=== PATIENT | female | born 1960 | race Caucasian/White ===

== ENCOUNTER 2016-12-11 07:33 | Inpatient (IN) | payer MEDICAID ==
[~2016-12-11] VITALS: Ht 157.5 cm; Wt 96.5 kg
[2016-12-11] MEDS ORDERED: SODIUM CHLORIDE 0.9% 500 ML IVB ONE (08:08)
[2016-12-11] MEDS ORDERED: MORPHINE SULFATE 4 MG/ML SYRG IV ONE (08:15)
[2016-12-11] MEDS ORDERED: ONDANSETRON HCL 4 MG/2 ML VIAL IV ONE (08:15)
[2016-12-11 08:37] LABS: Basophils # (auto) 0 uL; Basophils % (auto) 0.4 % (0.0-2.0); Eosinophils # (auto) 0.5 uL; Eosinophils % (auto) 7.5 % (0.0-7.0); Hematocrit 44.3 % (36.0-46.0); Hemoglobin 14.5 g/dL (12.2-16.2); Lymphocytes # (auto) 1.8 uL; Mean Corpuscular Hemoglobin 27.7 pg (28.0-32.0); Mean Corpuscular Hgb Conc. 32.7 g/dL (32.0-36.0); Mean Corpuscular Volume 84.6 fL (80.0-100.0); Mean Platelet Volume 9.9 fL (7.4-10.4); Monocytes # (auto) 0.5 uL; Monocytes % (auto) 7.7 % (0.0-12.0); Neutrophils # (auto) 3.5 uL; Neutrophils % (auto) 55.4 % (37.0-80.0); Platelet Count (auto) 161 10^3/uL (140-450); Red Cell Distribution Width 13.2 % (11.6-16.0); White Blood Cell 6.2 10^3/uL (4.4-10.8)
[2016-12-11 08:57] LABS: Albumin 3.2 g/dL (3.4-5.0); Anion Gap 7 (5-15); Aspartate Aminotransferase 36 U/L (15-37); BUN/Creatinine Ratio 17.9; Blood Urea Nitrogen 12 mg/dL (7-18); Carbon Dioxide 24 mmol/L (21-32); Chloride 111 mmol/L (98-107); GFR African American 117 mL/min; GFR Non-African American 96 mL/min; Glucose 81 mg/dL (74-106); Sodium 142 mmol/L (136-145)
[2016-12-11 09:02] LABS: Alkaline Phosphatase 180 U/L (45-117); Bilirubin, Total 0.6 mg/dL (0.2-1.0); Total Protein 7.3 g/dL (6.4-8.2)
[2016-12-11] MEDS ORDERED: CLON1TAB3 PO (09:03)
[2016-12-11] MEDS ORDERED: LEVO50TA66 PO (09:03)
[2016-12-11] MEDS ORDERED: AMIT PO (09:04)
[2016-12-11] MEDS ORDERED: LISI-646 PO (09:04)
[2016-12-11 09:20] LABS: Urine RBC None Seen /hpf (0 - 4)
[2016-12-11 09:58] LABS: Urine Bilirubin Negative (Negative); Urine Blood Negative /uL (Negative); Urine Color Yellow (Yellow); Urine Glucose Normal (Normal); Urine Ketone Negative (Negative); Urine Nitrite Negative (Negative); Urine Squamous Epithelial Cell FEW /hpf (<5); Urine Urobilinogen Normal (Negative)
[2016-12-11] MEDS ORDERED: cefTRIAXone 1GM/50ML D5W 50 ML IV ONE (10:45)
[2016-12-11] MEDS ORDERED: ONDANSETRON HCL 4 MG/2 ML VIAL IV PRN (11:00)
[2016-12-11] MEDS ORDERED: ACETAMINOPHEN 325 MG TAB PO PRN (11:00)
[2016-12-11] MEDS ORDERED: NITROGLYCERIN 0.4 MG SL TAB SL PRN (11:00)
[2016-12-11] MEDS: LISINOPRIL 20 MG TAB PO SCH (11:03)
[2016-12-11] MEDS: MULTIPLE VITAMIN TAB PO SCH (11:03)
[2016-12-11] MEDS ORDERED: FAMOTIDINE 20 MG TAB PO SCH (11:15)
[2016-12-11] MEDS ORDERED: LEVOTHYROXINE SODIUM 50 MCG TAB PO ONE (11:15)
[2016-12-11 11:28] LABS: INR 1.02 (0.9-1.15)
[2016-12-11] MEDS ORDERED: METH10T PO (12:00)
[2016-12-11 13:00] VITALS: BP 103/64
[2016-12-11] MEDS ORDERED: metroNIDAZOLE 500MG/100ML 100 ML IV ONE (13:19)
[2016-12-11] MEDS: metroNIDAZOLE 500MG/100ML 100 ML IV SCH ×2 (14:12→20:31)
[2016-12-11] MEDS: SODIUM CHLOR 0.9% PF (SALINE LOCK) 10ML VIAL IV SCH ×2 (14:13→21:47)
[2016-12-11 17:20] VITALS: BP 97/67
[2016-12-11] MEDS: clonazePAM 0.5 MG TAB PO PRN (21:36)
[2016-12-11] MEDS: PANTOPRAZOLE 40 MG TAB PO SCH (21:49)
[2016-12-11] MEDS: AMITRIPTYLINE HCL 25 MG TAB PO SCH (21:49)
[2016-12-11 22:00] VITALS: BP 98/68
[2016-12-11] MEDS: TEMAZEPAM 15 MG CAP PO PRN (23:01)
[2016-12-11] MEDS: HYDROcodone-ACET 5/325MG TAB PO PRN (23:01)
[2016-12-12] MEDS: HYDROcodone-ACET 5/325MG TAB PO PRN ×4 (03:15→21:35)
[2016-12-12] MEDS: metroNIDAZOLE 500MG/100ML 100 ML IV SCH ×3 (04:30→20:33)
[2016-12-12] MEDS: SODIUM CHLOR 0.9% PF (SALINE LOCK) 10ML VIAL IV SCH ×3 (05:26→21:34)
[2016-12-12 05:30] VITALS: BP 109/73
[2016-12-12] MEDS: LEVOTHYROXINE SODIUM 50 MCG TAB PO SCH (06:39)
[2016-12-12 06:40] LABS: Basophils # (auto) 0 uL; Basophils % (auto) 0.5 % (0.0-2.0); Eosinophils # (auto) 0.4 uL; Eosinophils % (auto) 7.3 % (0.0-7.0); Hematocrit 38.8 % (36.0-46.0); Hemoglobin 12.7 g/dL (12.2-16.2); Lymphocytes # (auto) 1.8 uL; Lymphocytes % (auto) 34.9 % (10.0-50.0); Mean Corpuscular Hemoglobin 27.5 pg (28.0-32.0); Mean Corpuscular Hgb Conc. 32.7 g/dL (32.0-36.0); Mean Platelet Volume 9.9 fL (7.4-10.4); Monocytes # (auto) 0.4 uL; Monocytes % (auto) 8.6 % (0.0-12.0); Neutrophils # (auto) 2.5 uL; Neutrophils % (auto) 48.7 % (37.0-80.0); Platelet Count (auto) 143 10^3/uL (140-450); Red Cell Distribution Width 13.3 % (11.6-16.0); White Blood Cell 5.2 10^3/uL (4.4-10.8)
[2016-12-12 06:47] LABS: Albumin 2.7 g/dL (3.4-5.0); Calcium 8.1 mg/dL (8.5-10.1)
[2016-12-12 06:49] LABS: BUN/Creatinine Ratio 18.3
[2016-12-12 06:51] LABS: Bilirubin, Total 0.4 mg/dL (0.2-1.0); Total Protein 6.4 g/dL (6.4-8.2)
[2016-12-12 08:17] VITALS: BP 92/64
[2016-12-12] MEDS: cefTRIAXone 1GM/50ML D5W 50 ML IV SCH (09:11)
[2016-12-12] MEDS: METHADONE HCL 10 MG TAB PO SCH (09:12)
[2016-12-12] MEDS: PANTOPRAZOLE 40 MG TAB PO SCH ×2 (09:13→21:34)
[2016-12-12] MEDS: LISINOPRIL 20 MG TAB PO SCH (09:13)
[2016-12-12] MEDS: MULTIPLE VITAMIN TAB PO SCH (09:13)
[2016-12-12 12:42] VITALS: BP 123/76
[2016-12-12] MEDS: clonazePAM 0.5 MG TAB PO PRN (15:03)
[2016-12-12 17:21] VITALS: BP 105/67
[2016-12-12] MEDS: TEMAZEPAM 15 MG CAP PO PRN (21:34)
[2016-12-12] MEDS: AMITRIPTYLINE HCL 25 MG TAB PO SCH (21:34)
[2016-12-12 22:00] VITALS: BP 99/73
[2016-12-13] MEDS: clonazePAM 0.5 MG TAB PO PRN ×2 (02:51→15:01)
[2016-12-13] MEDS: metroNIDAZOLE 500MG/100ML 100 ML IV SCH ×3 (04:05→20:12)
[2016-12-13 05:00] VITALS: BP 105/68
[2016-12-13] MEDS: HYDROcodone-ACET 5/325MG TAB PO PRN ×4 (05:49→18:44)
[2016-12-13] MEDS: SODIUM CHLOR 0.9% PF (SALINE LOCK) 10ML VIAL IV SCH ×3 (05:59→21:45)
[2016-12-13 06:03] LABS: Basophils # (auto) 0 uL; Basophils % (auto) 0.4 % (0.0-2.0); Eosinophils # (auto) 0.4 uL; Eosinophils % (auto) 6.7 % (0.0-7.0); Hematocrit 40.1 % (36.0-46.0); Hemoglobin 12.9 g/dL (12.2-16.2); Lymphocytes # (auto) 1.8 uL; Lymphocytes % (auto) 30.1 % (10.0-50.0); Mean Corpuscular Hemoglobin 27.2 pg (28.0-32.0); Mean Corpuscular Hgb Conc. 32.2 g/dL (32.0-36.0); Mean Corpuscular Volume 84.6 fL (80.0-100.0); Mean Platelet Volume 9.8 fL (7.4-10.4); Monocytes # (auto) 0.5 uL; Monocytes % (auto) 9.1 % (0.0-12.0); Neutrophils # (auto) 3.1 uL; Neutrophils % (auto) 53.7 % (37.0-80.0); Platelet Count (auto) 143 10^3/uL (140-450); Red Cell Distribution Width 13.1 % (11.6-16.0); White Blood Cell 5.8 10^3/uL (4.4-10.8)
[2016-12-13 06:17] LABS: Potassium 4.2 mmol/L (3.5-5.1)
[2016-12-13 06:23] LABS: Albumin 2.7 g/dL (3.4-5.0); BUN/Creatinine Ratio 15.2; Calcium 7.9 mg/dL (8.5-10.1)
[2016-12-13 06:27] LABS: Bilirubin, Total 0.3 mg/dL (0.2-1.0); Total Protein 6.4 g/dL (6.4-8.2)
[2016-12-13] MEDS: LEVOTHYROXINE SODIUM 50 MCG TAB PO SCH (06:34)
[2016-12-13 08:00] VITALS: BP 124/89
[2016-12-13] MEDS: METHADONE HCL 10 MG TAB PO SCH (08:29)
[2016-12-13 09:00] VITALS: BP 124/89
[2016-12-13] MEDS: cefTRIAXone 1GM/50ML D5W 50 ML IV SCH (10:12)
[2016-12-13] MEDS: PANTOPRAZOLE 40 MG TAB PO SCH ×2 (10:13→21:45)
[2016-12-13] MEDS: MULTIPLE VITAMIN TAB PO SCH (10:13)
[2016-12-13] MEDS: LISINOPRIL 20 MG TAB PO SCH (10:14)
[2016-12-13] MEDS ORDERED: LACTULOSE 20Gm/30ML SOLN PO PRN (13:00)
[2016-12-13 17:00] VITALS: BP 101/65
[2016-12-13 19:30] VITALS: BP 124/89
[2016-12-13 21:44] VITALS: BP 99/61
[2016-12-13] MEDS: AMITRIPTYLINE HCL 25 MG TAB PO SCH (21:45)
[2016-12-13] MEDS: TEMAZEPAM 15 MG CAP PO PRN (21:46)
[2016-12-14] VITALS (7 sets, daily range): BP systolic 95–111; BP diastolic 63–81
[2016-12-14] MEDS: HYDROcodone-ACET 5/325MG TAB PO PRN ×2 (02:40→12:50)
[2016-12-14] MEDS: clonazePAM 0.5 MG TAB PO PRN ×2 (02:40→15:45)
[2016-12-14] MEDS: metroNIDAZOLE 500MG/100ML 100 ML IV SCH ×2 (04:00→12:50)
[2016-12-14] MEDS: SODIUM CHLOR 0.9% PF (SALINE LOCK) 10ML VIAL IV SCH ×2 (05:04→15:45)
[2016-12-14 06:11] LABS: Basophils # (auto) 0 uL; Basophils % (auto) 0.5 % (0.0-2.0); Eosinophils # (auto) 0.4 uL; Eosinophils % (auto) 6.9 % (0.0-7.0); Hematocrit 40.3 % (36.0-46.0); Hemoglobin 13.2 g/dL (12.2-16.2); Lymphocytes # (auto) 1.7 uL; Lymphocytes % (auto) 29.1 % (10.0-50.0); Mean Corpuscular Hemoglobin 27.5 pg (28.0-32.0); Mean Corpuscular Hgb Conc. 32.8 g/dL (32.0-36.0); Mean Corpuscular Volume 83.7 fL (80.0-100.0); Monocytes # (auto) 0.6 uL; Monocytes % (auto) 9.8 % (0.0-12.0); Neutrophils # (auto) 3.2 uL; Neutrophils % (auto) 53.7 % (37.0-80.0); Platelet Count (auto) 145 10^3/uL (140-450); White Blood Cell 5.9 10^3/uL (4.4-10.8)
[2016-12-14] MEDS: LEVOTHYROXINE SODIUM 50 MCG TAB PO SCH (06:12)
[2016-12-14 06:23] LABS: Potassium 4.1 mmol/L (3.5-5.1)
[2016-12-14 06:42] LABS: BUN/Creatinine Ratio 18.9; Calcium 8.3 mg/dL (8.5-10.1)
[2016-12-14] MEDS ORDERED: SODIUM CHLORIDE LOCK 10 ML ONE (08:03)
[2016-12-14] MEDS ORDERED: NALOXONE HCL 0.4 MG/ML VIAL ONE (08:03)
[2016-12-14] MEDS ORDERED: FLUMAZENIL 0.1 MG/ML INJ 10ML MDV IV ONE (08:03)
[2016-12-14] MEDS ORDERED: LIDOCAINE VISCOUS 2% 15ML UD ONE (08:04)
[2016-12-14] MEDS ORDERED: diphenhdrAMINE HCL 50 MG/1 ML VL ONE (08:04)
[2016-12-14] MEDS: MIDAZOLAM HCL 5 MG/ML-1ML VIAL ONE ×2 (09:20→09:24)
[2016-12-14] MEDS: fentaNYL CITRATE 100 MCG/2 ML VL ONE ×2 (09:20→09:24)
[2016-12-14] MEDS: LISINOPRIL 20 MG TAB PO SCH (10:00)
[2016-12-14] MEDS ORDERED: METHADONE HCL 10 MG TAB PO SCH (10:00)
[2016-12-14] MEDS: PANTOPRAZOLE 40 MG TAB PO SCH (10:30)
[2016-12-14] MEDS: MULTIPLE VITAMIN TAB PO SCH (10:30)
[2016-12-14] MEDS: cefTRIAXone 1GM/50ML D5W 50 ML IV SCH (10:30)
== END 2016-12-14 18:40 | disposition home or self-care (01) | DRG 249 ==
LOC: EDSEX 07:33 → ER 07:33 → TELE 07:34 → TELE-E-ADS 11:38 → TELE-WESTW 12:27
PROVIDERS: ADMIT Internal Medicine; ATTEND Internal Medicine
PROC: 0DB68ZX Excision of Stomach, Via Natural or Artificial Opening Endoscopic, Diagnostic (ICD-10-PCS; principal; 2016-12-14 09:13)
DX: K52.9 Noninfective gastroenteritis and colitis, unspecified (principal); E44.1 Mild protein-calorie malnutrition; I10 Essential (primary) hypertension; N39.0 Urinary tract infection, site not specified; E83.51 Hypocalcemia; B19.20 Unspecified viral hepatitis C without hepatic coma; E03.9 Hypothyroidism, unspecified; F17.210 Nicotine dependence, cigarettes, uncomplicated; K29.60 Other gastritis without bleeding; K59.03 Drug induced constipation; T40.605A Adverse effect of unspecified narcotics, initial encounter; K62.3 Rectal prolapse
CPT/HCPCS: 36415; 43239; 71010; 74176; 80048; 80053; 81001; 82270; 84484; 85025; 85610; 87045; 87086; 87493; 87899; 93005; 94761; 96361; 96365; 96375; J0696; J2250; J2405; J3490

== ENCOUNTER 2017-03-10 16:27 | Inpatient (IN) | payer MEDICAID ==
[~2017-03-10] VITALS: Ht 157.5 cm; Wt 90.0 kg
[~2017-03-10 16:27] MED LIST: AMIT PO; CLON1TAB3 PO; LEVO50TA66 PO; LISI-646 PO; METH10T PO
[2017-03-10 17:18] LABS: Basophils # (auto) 0 uL; Basophils % (auto) 0.4 % (0.0-2.0); CONDITION Y; Eosinophils # (auto) 0.3 uL; Eosinophils % (auto) 3.5 % (0.0-7.0); Hematocrit 44.8 % (36.0-46.0); Hemoglobin 14.8 g/dL (12.2-16.2); Lymphocytes # (auto) 2.6 uL; Lymphocytes % (auto) 33.8 % (10.0-50.0); Mean Corpuscular Hemoglobin 27.9 pg (28.0-32.0); Mean Corpuscular Hgb Conc. 33.1 g/dL (32.0-36.0); Mean Corpuscular Volume 84.3 fL (80.0-100.0); Mean Platelet Volume 9.3 fL (7.4-10.4); Monocytes # (auto) 0.7 uL; Monocytes % (auto) 8.4 % (0.0-12.0); Neutrophils # (auto) 4.2 uL; Neutrophils % (auto) 53.9 % (37.0-80.0); Platelet Count (auto) 202 10^3/uL (140-450); Red Cell Distribution Width 13.3 % (11.6-16.0); White Blood Cell 7.8 10^3/uL (4.4-10.8)
[2017-03-10 17:43] LABS: Albumin 3.7 g/dL (3.4-5.0); Alkaline Phosphatase 192 U/L (45-117); Anion Gap 8 (5-15); Aspartate Aminotransferase 35 U/L (15-37); BUN/Creatinine Ratio 17.7; Bilirubin, Total 0.5 mg/dL (0.2-1.0); Blood Urea Nitrogen 11 mg/dL (7-18); Calcium 9.1 mg/dL (8.5-10.1); Carbon Dioxide 25 mmol/L (21-32); Chloride 105 mmol/L (98-107); GFR African American 128 mL/min; GFR Non-African American 105 mL/min; Glucose 82 mg/dL (74-106); Magnesium 1.9 mg/dL (1.6-2.6); Potassium 3.9 mmol/L (3.5-5.1); Sodium 138 mmol/L (136-145); Total Protein 8.5 g/dL (6.4-8.2)
[2017-03-10] MEDS ORDERED: ASPirin 81 mg TAB PO ONE (19:45)
[2017-03-10] MEDS ORDERED: ONDANSETRON HCL 4 MG/2 ML VIAL IV ONE (19:45)
[2017-03-10 20:31] LABS: INR 0.98 (0.9-1.15); Partial Thromboplastin Time 26.8 sec (22.64-33.71); Prothrombin Time 10.7 sec (9.37-12.3)
[2017-03-10] MEDS: MORPHINE SULF INJ 2 MG/ML SYRINGE 1ML IV PRN ×2 (20:35→22:19)
[2017-03-10 21:23] LABS: B-Type Natriuretic Peptide 18.2 pg/mL (0-100); Temperature: 22.4 C (20.0-25.0)
[2017-03-10] MEDS ORDERED: MORPHINE SULF INJ 2 MG/ML SYRINGE 1ML IV PRN (22:15)
[2017-03-10] MEDS ORDERED: ACETAMINOPHEN 500 MG TAB PO PRN (22:15)
[2017-03-10] MEDS ORDERED: TEMAZEPAM 15 MG CAP PO PRN (22:15)
[2017-03-10] MEDS ORDERED: LACTULOSE 20Gm/30ML SOLN PO PRN (22:15)
[2017-03-10] MEDS ORDERED: ONDANSETRON HCL 4 MG/2 ML VIAL IV PRN (22:15)
[2017-03-10] MEDS ORDERED: NITROGLYCERIN 0.4 MG SL TAB SL PRN (22:15)
[2017-03-10] MEDS: SODIUM CHLORIDE 0.9% 1,000 ML IV SCH (22:25)
[2017-03-10 23:02] LABS: Cholesterol 138 mg/dL (< 200); HDL Cholesterol 32 mg/dL (40-59); LDL Cholesterol 95 mg/dL (< 100); Triglycerides 86 mg/dL (< 150)
[2017-03-11] MEDS: MORPHINE SULF INJ 2 MG/ML SYRINGE 1ML IV PRN ×2 (01:27→21:57)
[2017-03-11 02:46] LABS: Urine RBC None Seen /hpf (0 - 4)
[2017-03-11 03:04] LABS: Urine Bilirubin Negative (Negative); Urine Blood Negative /uL (Negative); Urine Color Yellow (Yellow); Urine Glucose Normal (Normal); Urine Ketone Negative (Negative); Urine Mucus FEW (None Seen); Urine Nitrite Negative (Negative); Urine Squamous Epithelial Cell FEW /hpf (<5); Urine pH 6.5 (5.0-8.0)
[2017-03-11 04:01] LABS: Basophils # (auto) 0 uL; Basophils % (auto) 0.4 % (0.0-2.0); CONDITION Y; Eosinophils # (auto) 0.4 uL; Eosinophils % (auto) 7.4 % (0.0-7.0); Hematocrit 39.3 % (36.0-46.0); Hemoglobin 12.9 g/dL (12.2-16.2); Lymphocytes # (auto) 2.1 uL; Lymphocytes % (auto) 37.8 % (10.0-50.0); Mean Corpuscular Hemoglobin 27.5 pg (28.0-32.0); Mean Corpuscular Hgb Conc. 32.8 g/dL (32.0-36.0); Mean Platelet Volume 9.4 fL (7.4-10.4); Monocytes # (auto) 0.6 uL; Monocytes % (auto) 11.4 % (0.0-12.0); Neutrophils # (auto) 2.4 uL; Platelet Count (auto) 171 10^3/uL (140-450); Red Cell Distribution Width 13.6 % (11.6-16.0); White Blood Cell 5.5 10^3/uL (4.4-10.8)
[2017-03-11] MEDS: LORazepam 0.5 MG TAB PO PRN ×2 (04:15→16:29)
[2017-03-11 04:27] LABS: Potassium 3.9 mmol/L (3.5-5.1)
[2017-03-11 04:34] LABS: Albumin 2.8 g/dL (3.4-5.0); BUN/Creatinine Ratio 16.4; Calcium 8.2 mg/dL (8.5-10.1)
[2017-03-11 04:37] LABS: Bilirubin, Total 0.5 mg/dL (0.2-1.0); Total Protein 6.7 g/dL (6.4-8.2)
[2017-03-11] MEDS: LEVOTHYROXINE SODIUM 50 MCG TAB PO SCH (06:31)
[2017-03-11 09:03] VITALS: BP 108/70
[2017-03-11] MEDS: LISINOPRIL 20 MG TAB PO SCH (10:00)
[2017-03-11] MEDS ORDERED: AMITRIPTYLINE HCL 10 MG TAB PO SCH (10:00)
[2017-03-11] MEDS ORDERED: METOPROLOL TARTRATE 25 MG TAB PO SCH (10:00)
[2017-03-11] MEDS: NITROGLYCERIN 0.2MG/HR TOPICAL PATCH TD SCH (10:00)
[2017-03-11] MEDS: clonazePAM 0.5 MG TAB PO SCH ×2 (10:32→21:28)
[2017-03-11] MEDS: ASPirin 81 mg TAB PO SCH (10:32)
[2017-03-11] MEDS ORDERED: METHADONE HCL 10 MG TAB PO SCH ×2 (12:45)
[2017-03-11] MEDS: SODIUM CHLORIDE 0.9% 1,000 ML IV SCH ×2 (12:59→22:30)
[2017-03-11] MEDS: METHADONE HCL 10 MG TAB PO SCH (13:00)
[2017-03-11 14:14] LABS: Basophils # (auto) 0 uL; Basophils % (auto) 0.5 % (0.0-2.0); CONDITION Y; Eosinophils # (auto) 0.3 uL; Eosinophils % (auto) 6.6 % (0.0-7.0); Hematocrit 39.6 % (36.0-46.0); Hemoglobin 13.2 g/dL (12.2-16.2); Lymphocytes # (auto) 1.5 uL; Lymphocytes % (auto) 29.5 % (10.0-50.0); Mean Corpuscular Hemoglobin 27.7 pg (28.0-32.0); Mean Corpuscular Hgb Conc. 33.3 g/dL (32.0-36.0); Mean Corpuscular Volume 83.2 fL (80.0-100.0); Mean Platelet Volume 9.1 fL (7.4-10.4); Monocytes # (auto) 0.5 uL; Monocytes % (auto) 9.5 % (0.0-12.0); Neutrophils # (auto) 2.8 uL; Neutrophils % (auto) 53.9 % (37.0-80.0); Platelet Count (auto) 180 10^3/uL (140-450); Red Cell Distribution Width 13.1 % (11.6-16.0); White Blood Cell 5.2 10^3/uL (4.4-10.8)
[2017-03-11 14:43] LABS: BUN/Creatinine Ratio 17.6; Bilirubin, Total 0.5 mg/dL (0.2-1.0); Calcium 8.6 mg/dL (8.5-10.1); Potassium 4.4 mmol/L (3.5-5.1); Total Protein 7.1 g/dL (6.4-8.2)
[2017-03-11 15:42] VITALS: BP 120/89
[2017-03-11] MEDS ORDERED: CHOLCAP4 PO (17:01)
[2017-03-11] MEDS ORDERED: OMEP20CA74 PO (17:01)
[2017-03-11 17:26] VITALS: BP 120/89
[2017-03-11 20:00] VITALS: BP 105/74
[2017-03-11] MEDS: ATORVASTATIN 20 MG TAB PO SCH (21:28)
[2017-03-11] MEDS: AMITRIPTYLINE HCL 25 MG TAB PO SCH (21:28)
[2017-03-11 22:00] VITALS: BP 105/74
[2017-03-12] VITALS (7 sets, daily range): BP systolic 84–111; BP diastolic 52–83
[2017-03-12] MEDS: METHADONE HCL 10 MG TAB PO SCH (06:21)
[2017-03-12] MEDS: LEVOTHYROXINE SODIUM 50 MCG TAB PO SCH (06:22)
[2017-03-12] MEDS ORDERED: METHADONE HCL 10 MG TAB PO SCH (07:00)
[2017-03-12] MEDS: NITROGLYCERIN 0.2MG/HR TOPICAL PATCH TD SCH (09:10)
[2017-03-12] MEDS: clonazePAM 0.5 MG TAB PO SCH ×3 (09:11→21:52)
[2017-03-12] MEDS: LISINOPRIL 20 MG TAB PO SCH (09:11)
[2017-03-12] MEDS: ASPirin 81 mg TAB PO SCH (09:11)
[2017-03-12] MEDS ORDERED: clonazePAM 0.5 MG TAB PO PRN (09:30)
[2017-03-12] MEDS: SODIUM CHLORIDE 0.9% 1,000 ML IV SCH (13:33)
[2017-03-12] MEDS: MORPHINE SULF INJ 2 MG/ML SYRINGE 1ML IV PRN ×2 (17:20→23:49)
[2017-03-12] MEDS: HYDROcodone-ACET 5/325MG TAB PO PRN (20:08)
[2017-03-12] MEDS: AMITRIPTYLINE HCL 25 MG TAB PO SCH (21:51)
[2017-03-12] MEDS: ATORVASTATIN 20 MG TAB PO SCH (21:52)
[2017-03-12] MEDS: LORazepam 0.5 MG TAB PO PRN (23:49)
[2017-03-13] VITALS (7 sets, daily range): BP systolic 90–136; BP diastolic 62–78
[2017-03-13] MEDS: SODIUM CHLORIDE 0.9% 1,000 ML IV SCH ×2 (03:27→17:09)
[2017-03-13] MEDS: clonazePAM 0.5 MG TAB PO SCH ×3 (06:20→21:41)
[2017-03-13] MEDS: METHADONE HCL 10 MG TAB PO SCH (06:20)
[2017-03-13] MEDS: LEVOTHYROXINE SODIUM 50 MCG TAB PO SCH (06:20)
[2017-03-13 06:26] LABS: Basophils # (auto) 0 uL; Basophils % (auto) 0.5 % (0.0-2.0); CONDITION Y; Eosinophils # (auto) 0.4 uL; Eosinophils % (auto) 7.7 % (0.0-7.0); Hematocrit 38.2 % (36.0-46.0); Hemoglobin 12.4 g/dL (12.2-16.2); Lymphocytes # (auto) 2.3 uL; Lymphocytes % (auto) 39.4 % (10.0-50.0); Mean Corpuscular Hemoglobin 27.4 pg (28.0-32.0); Mean Corpuscular Hgb Conc. 32.6 g/dL (32.0-36.0); Mean Corpuscular Volume 84.1 fL (80.0-100.0); Mean Platelet Volume 9.3 fL (7.4-10.4); Monocytes # (auto) 0.7 uL; Monocytes % (auto) 11.5 % (0.0-12.0); Neutrophils # (auto) 2.4 uL; Neutrophils % (auto) 40.9 % (37.0-80.0); Platelet Count (auto) 165 10^3/uL (140-450); White Blood Cell 5.8 10^3/uL (4.4-10.8)
[2017-03-13 06:47] LABS: Albumin 2.8 g/dL (3.4-5.0); BUN/Creatinine Ratio 26.6; Calcium 8.4 mg/dL (8.5-10.1); Potassium 4.3 mmol/L (3.5-5.1)
[2017-03-13 06:49] LABS: Bilirubin, Total 0.4 mg/dL (0.2-1.0); Total Protein 6.4 g/dL (6.4-8.2)
[2017-03-13] MEDS: ASPirin 81 mg TAB PO SCH (10:00)
[2017-03-13] MEDS: HYDROcodone-ACET 5/325MG TAB PO PRN (10:00)
[2017-03-13] MEDS: NITROGLYCERIN 0.2MG/HR TOPICAL PATCH TD SCH (10:00)
[2017-03-13] MEDS: LISINOPRIL 20 MG TAB PO SCH (10:00)
[2017-03-13] MEDS: LORazepam 0.5 MG TAB PO PRN (16:39)
[2017-03-13] MEDS: ATORVASTATIN 20 MG TAB PO SCH (21:41)
[2017-03-13] MEDS: AMITRIPTYLINE HCL 25 MG TAB PO SCH (21:41)
[2017-03-13] MEDS ORDERED: GABAPENTIN 300 MG CAP PO SCH (22:00)
[2017-03-14] MEDS: HYDROcodone-ACET 5/325MG TAB PO PRN ×2 (01:37→10:46)
[2017-03-14 06:00] VITALS: BP 97/54
[2017-03-14] MEDS: SODIUM CHLORIDE 0.9% 1,000 ML IV SCH (06:07)
[2017-03-14] MEDS: LEVOTHYROXINE SODIUM 50 MCG TAB PO SCH (06:19)
[2017-03-14] MEDS: clonazePAM 0.5 MG TAB PO SCH (06:19)
[2017-03-14] MEDS: METHADONE HCL 10 MG TAB PO SCH (06:20)
[2017-03-14 08:00] VITALS: BP 124/70
[2017-03-14] MEDS: NITROGLYCERIN 0.2MG/HR TOPICAL PATCH TD SCH (10:00)
[2017-03-14] MEDS: LISINOPRIL 20 MG TAB PO SCH (10:45)
[2017-03-14] MEDS: ASPirin 81 mg TAB PO SCH (10:45)
== END 2017-03-14 13:15 | disposition home or self-care (01) | DRG 203 ==
LOC: ER 16:28 → TELE 16:29 → TELE-E-ADS 03-11 07:44 → TELE-WESTW 03-11 15:49
PROVIDERS: ADMIT Nurse Practitioner Family; ATTEND Internal Medicine
DX: R07.89 Other chest pain (principal); I10 Essential (primary) hypertension; F19.239 Other psychoactive substance dependence with withdrawal, unspecified; R19.7 Diarrhea, unspecified; F41.9 Anxiety disorder, unspecified; F17.210 Nicotine dependence, cigarettes, uncomplicated; E66.9 Obesity, unspecified; E03.9 Hypothyroidism, unspecified; Z68.36 Body mass index [BMI] 36.0-36.9, adult; Z79.899 Other long term (current) drug therapy; Z82.49 Family history of ischemic heart disease and other diseases of the circulatory system
CPT/HCPCS: 36415; 71010; 72100; 80053; 80061; 80307; 81001; 82550; 83735; 83880; 84443; 84484; 85025; 85379; 85610; 85652; 85730; 86141; 87045; 87081; 87493; 87899; 93005; 93306; 94761; 96374; 96375; J2405

== ENCOUNTER 2017-06-28 15:59 | Emergency (ER) | payer MEDICAID ==
[~2017-06-28] VITALS: Ht 157.5 cm; Wt 91.2 kg
[~2017-06-28 15:59] MED LIST changes: +CHOLCAP4 PO; +OMEP20CA74 PO
[2017-06-28 16:42] LABS: Urine Bacteria NONE SEEN /hpf (None Seen); Urine Blood TRACE /uL (Negative); Urine Specific Gravity 1.016 (1.001-1.035); Urine WBC <1 /hpf (0 - 5)
[2017-06-28] MEDS ORDERED: SODIUM CHLORIDE 0.9% 1,000 ML IV ONE (19:47)
[2017-06-28] MEDS ORDERED: cefTRIAXone 1GM/50ML D5W 50 ML IV ONE (20:00)
[2017-06-28] MEDS ORDERED: ONDANSETRON HCL 4 MG/2 ML VIAL IV ONE (20:00)
[2017-06-28 20:05] VITALS: BP 115/72
[2017-06-28 20:11] LABS: Basophils # (auto) 0.1 uL; Basophils % (auto) 1.1 % (0.0-2.0); Eosinophils % (auto) 13.8 % (0.0-7.0); Hematocrit 41.7 % (36.0-46.0); Hemoglobin 13.8 g/dL (12.2-16.2); Lymphocytes # (auto) 2.2 uL; Lymphocytes % (auto) 30.3 % (10.0-50.0); Mean Corpuscular Hemoglobin 27.5 pg (28.0-32.0); Mean Corpuscular Volume 83.3 fL (80.0-100.0); Monocytes # (auto) 0.6 uL; Monocytes % (auto) 8.1 % (0.0-12.0); Neutrophils # (auto) 3.4 uL; Neutrophils % (auto) 46.7 % (37.0-80.0); Nucleated Red Blood Cells % 0.3 %; Red Blood Cells 5.01 10^6/uL (4.0-5.20); White Blood Cell 7.3 10^3/uL (4.4-10.8)
[2017-06-28 20:12] LABS: Platelet Count (auto) 163 10^3/uL (140-450); Red Cell Distribution Width 12.8 % (11.8-14.3)
[2017-06-28 20:26] LABS: Albumin 3.3 g/dL (3.4-5.0); BUN/Creatinine Ratio 28.8; Calcium 8.6 mg/dL (8.5-10.1); Potassium 4.8 mmol/L (3.5-5.1)
[2017-06-28 20:28] LABS: Bilirubin, Total 0.5 mg/dL (0.2-1.0); Total Protein 7.5 g/dL (6.4-8.2)
[2017-06-28] MEDS ORDERED: MORPHINE SULFATE 10 MG/ML INJ 1ML SDV IV ONE (20:30)
== END 2017-06-28 21:52 | disposition home or self-care (01) ==
LOC: ER 16:03
DX: K46.9 Unspecified abdominal hernia without obstruction or gangrene (principal); I10 Essential (primary) hypertension; F17.210 Nicotine dependence, cigarettes, uncomplicated; E66.01 Morbid (severe) obesity due to excess calories; Z68.36 Body mass index [BMI] 36.0-36.9, adult
CPT/HCPCS: 36415; 71020; 74176; 80053; 81001; 85025; 96365; 96375; 99285; J0696; J2270; J2405; J7030; 93005

== ENCOUNTER 2017-10-11 14:21 | Emergency (ER) | payer MEDICAID ==
[~2017-10-11] VITALS: Ht 157.5 cm; Wt 86.6 kg
[2017-10-11 14:57] LABS: Basophils % (auto) 0.6 % (0.0-2.0); Hemoglobin 15.3 g/dL (12.2-16.2); Lymphocytes # (auto) 2.9 uL
[2017-10-11 15:03] LABS: Basophils # (auto) 0 uL; Eosinophils # (auto) 0.3 uL; Eosinophils % (auto) 4.3 % (0.0-7.0); Hematocrit 45.3 % (36.0-46.0); Lymphocytes % (auto) 36.5 % (10.0-50.0); Mean Corpuscular Hemoglobin 28.3 pg (28.0-32.0); Mean Corpuscular Hgb Conc. 33.8 g/dL (32.0-36.0); Mean Corpuscular Volume 83.8 fL (80.0-100.0); Monocytes # (auto) 0.5 uL; Monocytes % (auto) 6.8 % (0.0-12.0); Neutrophils # (auto) 4.2 uL; Neutrophils % (auto) 51.8 % (37.0-80.0); Platelet Count (auto) 170 10^3/uL (140-450); Red Cell Distribution Width 13.8 % (11.8-14.3)
[2017-10-11 15:10] LABS: Alanine Aminotransferase 28 U/L (13-56); Albumin 3.4 g/dL (3.4-5.0); Anion Gap 8 (5-15); Aspartate Aminotransferase 17 U/L (15-37); BUN/Creatinine Ratio 22.9; Blood Urea Nitrogen 16 mg/dL (7-18); Calcium 8.8 mg/dL (8.5-10.1); Carbon Dioxide 24 mmol/L (21-32); Chloride 110 mmol/L (98-107); GFR African American 111 mL/min; GFR Non-African American 91 mL/min; Glucose 112 mg/dL (74-106); Potassium 4.2 mmol/L (3.5-5.1); Sodium 142 mmol/L (136-145)
[2017-10-11 15:15] LABS: Alkaline Phosphatase 128 U/L (45-117); Bilirubin, Total 0.3 mg/dL (0.2-1.0); Total Protein 7.5 g/dL (6.4-8.2)
[2017-10-11] MEDS ORDERED: HYDROcodone-ACET 5/325MG TAB PO ONE (16:45)
[2017-10-11 17:48] VITALS: BP 115/78
== END 2017-10-11 18:00 | disposition home or self-care (01) ==
LOC: ER 14:21
DX: G89.4 Chronic pain syndrome (principal); I10 Essential (primary) hypertension; E07.89 Other specified disorders of thyroid
CPT/HCPCS: 36415; 70450; 71046; 80053; 84484; 85025; 93005

== ENCOUNTER 2018-01-10 07:33 | Emergency (ER) | payer MEDICAID, OTHER ==
[~2018-01-10] VITALS: Ht 157.5 cm; Wt 81.6 kg
[2018-01-10 08:25] LABS: Basophils # (auto) 0.1 uL; Basophils % (auto) 0.7 % (0.0-2.0); Eosinophils # (auto) 0.2 uL; Eosinophils % (auto) 2.7 % (0.0-7.0); Hematocrit 42.8 % (36.0-46.0); Hemoglobin 14.4 g/dL (12.2-16.2); Lymphocytes # (auto) 2.5 uL; Lymphocytes % (auto) 30.2 % (10.0-50.0); Mean Corpuscular Hemoglobin 29.1 pg (28.0-32.0); Mean Corpuscular Hgb Conc. 33.8 g/dL (32.0-36.0); Mean Corpuscular Volume 86.2 fL (80.0-100.0); Monocytes # (auto) 0.6 uL; Monocytes % (auto) 6.9 % (0.0-12.0); Neutrophils # (auto) 4.9 uL; Neutrophils % (auto) 59.5 % (37.0-80.0); Platelet Count (auto) 177 10^3/uL (140-450); Red Blood Cells 4.96 10^6/uL (4.0-5.20); Red Cell Distribution Width 13.5 % (11.8-14.3); White Blood Cell 8.3 10^3/uL (4.4-10.8)
[2018-01-10 08:43] LABS: Alanine Aminotransferase 22 U/L (13-56); Albumin 3.6 g/dL (3.4-5.0); Anion Gap 11 (5-15); Aspartate Aminotransferase 12 U/L (15-37); BUN/Creatinine Ratio 15.5; Blood Urea Nitrogen 16 mg/dL (7-18); Calcium 9.2 mg/dL (8.5-10.1); Carbon Dioxide 19 mmol/L (21-32); Chloride 114 mmol/L (98-107); GFR African American 71 mL/min; GFR Non-African American 58 mL/min; Glucose 83 mg/dL (74-106); Potassium 3.7 mmol/L (3.5-5.1); Sodium 144 mmol/L (136-145)
[2018-01-10 08:48] LABS: Alkaline Phosphatase 91 U/L (45-117); Bilirubin, Total 0.4 mg/dL (0.2-1.0); Total Protein 7.6 g/dL (6.4-8.2)
[2018-01-10 09:18] LABS: Urine Bacteria FEW /hpf (None Seen); Urine Blood Negative /uL (Negative); Urine Mucus FEW (None Seen); Urine Specific Gravity 1.011 (1.001-1.035); Urine WBC 7 /hpf (0 - 5)
[2018-01-10] MEDS ORDERED: ALPRAZolam 0.5 MG TAB PO ONE (09:45)
[2018-01-10 10:18] VITALS: BP 118/74
== END 2018-01-10 10:29 | disposition home or self-care (01) ==
LOC: ER 07:37
DX: F41.9 Anxiety disorder, unspecified (principal); R19.7 Diarrhea, unspecified; R51 Headache; F32.9 Major depressive disorder, single episode, unspecified; I10 Essential (primary) hypertension; E07.89 Other specified disorders of thyroid; F17.210 Nicotine dependence, cigarettes, uncomplicated
CPT/HCPCS: 36415; 80053; 81001; 83735; 84484; 85025; 93005